=== PATIENT | female | born 1985 | race Caucasian/White ===

== ENCOUNTER 2021-04-29 16:35 | Emergency (ER) | payer OTHER, SELFPAY ==
[2021-04-29 16:58] VITALS: BP 143/84; PULSE 76; RESP 16; TEMP 37.2; O2SAT 100; BMI 27.2
--- NOTE | 2021-04-29 17:03 | DI.RAD.S_ITS ---
PROCEDURE: XR HAND RT MIN 3V INDICATIONS: injury TECHNIQUE: 3 views of the hand(s) acquired. COMPARISON: None. FINDINGS: Bones: No fractures or dislocations. Carpal bones are normally aligned. No suspicious bony lesions. Soft tissues: No suspicious soft tissue calcifications. IMPRESSION: No evidence acute bony abnormality of the right hand Dictated by: Reed Barba M.D. on 04/29/2021 at 17:25 Approved by: Reed Barba M.D. on 04/29/2021 at 17:26
[2021-04-29] MEDS: IBUPROFEN 400 MG TABLET PO (20:15)
[2021-04-29 20:20] VITALS: PULSE 70
--- NOTE | 2021-04-29 20:21 | ED_ITS ---
HPI - General Adult General Chief complaint: Extremity Injury, Upper Stated complaint: rt hand injury Time Seen by Provider: 04/29/21 20:11 Source: patient Mode of arrival: Ambulatory History of Present Illness HPI narrative: 35-year-old female here for evaluation of a right hand injury. Patient states that she was using a stick to hit an object when her hand accidentally hit the optic. She did sustain a area of bruising on the back of her right hand. She has some discomfort with touching to that area. Also has some discomfort with making a fist. No wrist pain. No elbow pain. Has not tried anything for the symptoms prior to arrival. Related Data Allergies Allergy/AdvReac Type Severity Reaction Status Date / Time No Known Drug Allergies Allergy Verified 04/29/21 20:11 Review of Systems Musculoskeletal Musculoskeletal: Reports system reviewed and no additional complaints, except as documented Integumentary/Breasts Skin/Breast: Reports system reviewed and no additional complaints, except as documented Neurologic Neurologic: Reports system reviewed and no additional complaints, except as documented Hematologic/Lymphatic On Anticoagulants: No Patient History Medical History Healthy adult Social History Smoking Status: Never smoker Smoking Status: Never smoker alcohol intake frequency: holidays/special occasions only Substance Use Type: does not use Exam Initial Vital Signs Initial Vital Signs: Vital Signs Temperature 98.9 F 04/29/21 16:58 Pulse Rate 76 04/29/21 16:58 Respiratory Rate 16 04/29/21 16:58 Blood Pressure 143/84 H 04/29/21 16:58 Pulse Oximetry 100 04/29/21 16:58 Skin Other: Patient with bruising on the dorsum of the right hand specifically on the radial aspect. No breaks in the skin. No bleeding. Neuro Other: Neurovascularly intact to light touch Extrem Other: Patient has no wrist discomfort. No pain in the anatomic snuffbox. Does have some discomfort with making a fist with her right hand. Course Orders Ordered: Discontinued Medications Ibuprofen (Ibuprofen 400 Mg Tablet) 400 mg PO NOW ONE Stop: 04/29/21 20:12 Last Admin: 04/29/21 20:15 Dose: 400 mg Documented by: AVIS Vital Signs Vital signs: Vital Signs - 8 hr 04/29/21 20:20 Pulse Rate [Right Radial] 70 Medical Decision Making Imaging Data Extremity x-ray #1: Radiologist's Impression: [address] [address] XRay Report Signed Patient: Iliana Castro MR#: [id number] : 1985 Acct:[id number] Age/Sex: 35 / F Date of Service: 04/29/21 Loc: ED Accession Number: [id number] ?? Procedure: XR hand RT min 3V Ordering Provider: Keerthi Charles D.O. PROCEDURE:? XR HAND RT MIN 3V ? INDICATIONS:? injury ? TECHNIQUE:? 3 views of the hand(s) acquired.? ? COMPARISON:? None. ? FINDINGS:? ? Bones:? No fractures or dislocations.? Carpal bones are normally aligned.? No suspicious bony lesions.? ? Soft tissues:? No suspicious soft tissue calcifications.? ? ? IMPRESSION:? No evidence acute bony abnormality of the right hand ? ? Dictated by: Reed Barba M.D. on 04/29/2021 at 17:25 ? ? Approved by: Reed Barba M.D. on 04/29/2021 at 17:26?? MDM Narrative Medical decision making narrative: Patient is neurovascularly intact. No fractures noted on the x-rays. She does have bruising on the dorsum of the right hand. No further workup needed here in the emergency department. Patient was given return precautions and follow-up instructions. She expressed understanding and agreement. Discharge Plan Departure Patient Disposition: Home Clinical Impression: Contusion of hand, right Instructions: DI for Contusion, How To Perform RICE (Rest, Ice, Compress, Elevate) Activity Restrictions/Additional Instructions: I do recommend that you keep ice over the area. There were no fractures noted on the x-rays. Contact your primary doctor for follow-up. Return to the emergency department for any new or worsening symptoms.
== END 2021-04-29 20:30 | disposition home or self-care (01) ==
PROVIDERS: Emergency Provider Emergency Medicine
DX: S60.221A Contusion of right hand, initial encounter (principal); W22.8XXA Striking against or struck by other objects, initial encounter
CPT/HCPCS: 73130; 99283